=== PATIENT | male | born 1985 | race Caucasian/White ===

== ENCOUNTER 2019-11-21 05:25 | Emergency (ER) | payer OTHER ==
[~2019-11-21] VITALS: Ht 177.8 cm; Wt 82.0 kg
[2019-11-21 05:27] VITALS: BP 106/61
== END 2019-11-21 06:40 | disposition home or self-care (01) ==
LOC: ER 05:25
DX: M25.511 Pain in right shoulder (principal)
CPT/HCPCS: 73030; 93005; 99283